=== PATIENT | female | born 1990 | race Caucasian/White ===

== ENCOUNTER → 2020-10-31 | Emergency (ER) | payer OTHER ==
[~2020-10-31] VITALS: Ht 170.2 cm; Wt 63.0 kg
[~2020-10-31] MED LIST: RISP2TAB85 PO
[2020-10-31 09:55] VITALS: BP 105/61
== END | disposition home or self-care (01) ==
LOC: ER 09:33
DX: F20.9 Schizophrenia, unspecified (principal); Z76.0 Encounter for issue of repeat prescription
CPT/HCPCS: 99281